=== PATIENT | female | born 1945 | race Caucasian/White ===

== ENCOUNTER → 2017-03-22 | Outpatient (CLI) | payer MEDICARE ==
[~2017-03-22] MED LIST: AUGMENTIN 875 M1 TAB PO; CIPRO500 MG PO; CIPROFLOXACIN500 MG PO; CLARITIN10 MG PO; LEXAPRO10 MG PO; NORCO 325 MG-51 TAB PO; TAGAMET HB200 M1 PO; TYLENOL WITH CO1 TA1 PO; XANAX0.5 MG PO; XANAX1 MG PO; ZANTAC150 MG PO; ZOFRAN4 MG PO
== END | disposition home or self-care (01) ==
LOC: MAMMO 13:30
DX: N63 Unspecified lump in breast (principal)

== ENCOUNTER → 2018-02-01 | Outpatient (CLI) | payer MEDICARE | END | disposition home or self-care (01) | LOC: US 13:00 | DX: N63.12 Unspecified lump in the right breast, upper inner quadrant (principal) ==

== ENCOUNTER 2018-07-19 11:48 | Emergency (ER) | payer MEDICARE ==
[~2018-07-19] VITALS: Ht 160 cm; Wt 98.9 kg
--- NOTE | ~2018-07-19 | EKG ---
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
--- NOTE | ~2018-07-19 | EKG ---
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
[2018-07-19 12:18] LABS: BASO % 0.4 % (0.0-1.0); EOS # 0.1 10*3/uL (0.0-0.4); EOS % 1.8 % (1.0-4.0); HEMATOCRIT 37.2 % (37.0-47.0); HEMOGLOBIN 11.7 g/dl (12.0-16.0); LYMPH # 1.6 10*3/uL (1.3-4.4); LYMPH % 24.2 % (27.0-41.0); MEAN CELL VOLUME 81.8 fl (81.0-99.0); MEAN CORPUSCULAR HGB 25.7 pg (27.0-31.0); MEAN CORPUSCULAR HGB CONC 31.5 g/dl (33.0-37.0); MEAN PLATELET VOLUME 9.4 fl (9.6-12.3); MONO # 0.6 10*3/uL (0.1-1.0); MONO % 8.3 % (3.0-9.0); NEUT # 4.4 10*3/uL (2.3-7.9); PLATELET COUNT AUTOMATED 246 10*3/uL (130-400); RED BLOOD COUNT 4.55 10*6/uL (4.10-5.10); RED CELL DISTRI WIDTH 13.4 % (0-14.5); WHITE BLOOD COUNT 6.8 10*3/uL (4.8-10.8)
[2018-07-19 12:30] LABS: ACT PARTIAL THROMBO TIME 23.8 SECONDS (20.8-31.5); INTERNATIONAL NORM RATIO 1.1 (2.0-3.5)
[2018-07-19 12:34] LABS: ALBUMIN 3.4 gm/dl (3.1-4.5); ALKALINE PHOSPHATASE 80 U/L (45-117); BUN 10 mg/dl (7-24); CHLORIDE 106 mmol/L (98-107); CREATININE 0.79 mg/dL (0.55-1.02); POTASSIUM 4.5 mmol/L (3.5-5.1); SGOT/AST 17 IU/L (3-35); SGPT/ALT 17 U/L (12-78); SODIUM 140 mmol/L (136-145); TOTAL PROTEIN 6.8 gm/dL (6.4-8.2); TROPONIN I < 0.015 ng/ml (<0.045)
== END 2018-07-19 16:08 | disposition home or self-care (01) ==
LOC: ED 11:48
PROVIDERS: Emergency Medicine
DX: R09.1 Pleurisy (principal); R05 Cough; R79.1 Abnormal coagulation profile; K21.9 Gastro-esophageal reflux disease without esophagitis; Z88.2 Allergy status to sulfonamides; Z88.1 Allergy status to other antibiotic agents; Z79.899 Other long term (current) drug therapy

== ENCOUNTER → 2018-10-05 | Day surgery (SDC) | payer MEDICARE ==
[~2018-10-05] VITALS: Ht 160 cm; Wt 98.9 kg
[~2018-10-05] MED LIST changes: +NORCO 5-325 TA1 EACH PO
--- NOTE | ~2018-10-05 | PROC NOTE ---
[place], [place] PROCEDURE NOTE NAME: MILTON WRIGHT UNIT #: [id number] ROOM: DOCTOR: MINNIE GIRON MD BIRTHDATE: [birth year] DOS: 10/05/2018 PREOPERATIVE DIAGNOSIS: History of polyps. POSTOPERATIVE DIAGNOSIS: Sigmoid diverticulosis. PROCEDURE: Colonoscopy. ENDOSCOPIST: Minnie Giron MD INFORMATION SECURITY ANALYST: LEX. ANESTHESIA: MAC. INDICATIONS: The patient is a 73-year-old lady here for a followup colonoscopy. The patient has a history of polyps found on colonoscopy in the past. The procedure and its complications were explained to the patient in detail. Complications that were discussed included but were not limited to bleeding, infection, colon perforation, and missed lesions. She agreed to proceed. DESCRIPTION OF PROCEDURE: After identifying the patient, the patient was brought to the endoscopy suite and placed in the left lateral position. After IV sedation was administered, a timeout procedure was called and a digital rectal exam was performed. This was within normal limits. An adult colonoscope was now introduced into the anal canal and advanced sequentially into the rectum, sigmoid colon, descending colon, transverse colon, ascending colon up to the cecum. Upon reaching the cecum, the scope was withdrawn. There was found to be mild sigmoid diverticulosis. There were no other polyps seen. Colon looked clean with a good prep. After the scope was withdrawn, the patient was brought back to the recovery in a stable fashion. Based on this finding, the patient is recommended to have no other colonoscopies unless new symptoms appear. These findings were discussed with the patient's family in the recovery room. Minnie Giron MD CM:PROCNOTE:PROCEDURE NOTE [id number] MINNIE GIRON MD
[2018-10-05 07:34] VITALS: BP 148/77
[2018-10-05 08:02] VITALS: BP 136/71
[2018-10-05 08:15] VITALS: BP 154/77
[2018-10-05 08:32] VITALS: BP 157/78
== END | disposition home or self-care (01) ==
LOC: SDC 10-02 11:00
DX: Z12.11 Encounter for screening for malignant neoplasm of colon (principal); K57.30 Diverticulosis of large intestine without perforation or abscess without bleeding; I10 Essential (primary) hypertension; K21.9 Gastro-esophageal reflux disease without esophagitis; F41.9 Anxiety disorder, unspecified; F32.9 Major depressive disorder, single episode, unspecified; E66.9 Obesity, unspecified; Z68.38 Body mass index [BMI] 38.0-38.9, adult; Z86.010 Personal history of colon polyps; Z88.2 Allergy status to sulfonamides; Z88.1 Allergy status to other antibiotic agents; Z88.8 Allergy status to other drugs, medicaments and biological substances; Z90.49 Acquired absence of other specified parts of digestive tract; Z90.710 Acquired absence of both cervix and uterus; Z96.643 Presence of artificial hip joint, bilateral
CPT/HCPCS: 00812; G0105

== ENCOUNTER → 2019-01-19 | Outpatient (CLI) | payer MEDICARE | END | disposition home or self-care (01) | LOC: RAD 12:14 | DX: M47.27 Other spondylosis with radiculopathy, lumbosacral region (principal); M48.07 Spinal stenosis, lumbosacral region ==

== ENCOUNTER → 2019-03-04 | Outpatient (CLI) | payer MEDICARE ==
--- NOTE | ~2019-03-04 | EKG ---
[place], [place] ELECTROCARDIOGRAM REPORT NAME: MILTON WRIGHT UNIT #: [id number] ROOM: DOCTOR: EPIPHANY DRAFT REPORT BIRTHDATE: [birth year] [facility] Test Date: 2019-03-04 Test Time: 12:12:33 Pat Name: MILTON WRIGHT Department: Room: Gender: F Assistant To The Vice President: Denise Yee : 1945 Requested By: XIOMY MINAYA Order Number: [id number] Reading MD: Calos Vazquez MD Measurements Intervals [place] Rate: 53 P: -9 VT: 171 QRS: 65 QRSD: 88 T: 67 QT: 455 QTc: 428 Interpretive Statements Sinus bradycardia Borderline low voltage, extremity leads Compared to ECG 07/19/2018 15:35:36 No significant changes Electronically Signed On 03-06-2019 11:39:13 PDT by Calos Vazquez MD CM:EKGRPT:ELECTROCARDIOGRAM REPORT 1212 1139 XIOMY DU DRAFT REPORT XIOMY MINAYA
== END | disposition home or self-care (01) ==
LOC: CARD 11:54
DX: Z01.818 Encounter for other preprocedural examination (principal)

== ENCOUNTER → 2019-06-05 | Outpatient (CLI) | payer MEDICARE ==
[2019-06-05 11:11] LABS: CHOLESTEROL 253 mg/dL (<200); HDL CHOLESTEROL 72 mg/dl (40-60); LDL CHOLESTEROL 162 mg/dL (9-159); TRIGLYCERIDES 94 mg/dl (<150); VLDL CHOLESTEROL 19 mg/dL (6-40)
== END | disposition home or self-care (01) ==
LOC: LAB 09:28
PROVIDERS: Family Medicine
DX: R03.0 Elevated blood-pressure reading, without diagnosis of hypertension (principal); R79.9 Abnormal finding of blood chemistry, unspecified

== ENCOUNTER → 2021-03-23 | Outpatient (CLI) | payer MEDICARE | END | disposition home or self-care (01) | LOC: COVID19 16:59 | PROVIDERS: ATTEND Internal Medicine | DX: Z11.52 Encounter for screening for COVID-19 (principal) ==

== ENCOUNTER 2023-05-14 13:38 | Emergency (ER) | payer MEDICARE ==
[~2023-05-14] VITALS: Ht 160 cm; Wt 97.5 kg
[2023-05-14] MEDS ORDERED: IRBESARTAN75 M1 PO (14:23)
[2023-05-14] MEDS ORDERED: CENTRUM SILVER1 EAC5 PO (14:24)
[2023-05-14] MEDS ORDERED: AVPAK AZITHROM250 M1 PO (16:29)
== END 2023-05-14 16:41 | disposition home or self-care (01) ==
LOC: ED 13:38
DX: J40 Bronchitis, not specified as acute or chronic (principal); Z20.822 Contact with and (suspected) exposure to COVID-19; Z88.1 Allergy status to other antibiotic agents; Z88.2 Allergy status to sulfonamides; Z79.899 Other long term (current) drug therapy; F41.9 Anxiety disorder, unspecified; K21.9 Gastro-esophageal reflux disease without esophagitis; Z90.49 Acquired absence of other specified parts of digestive tract; Z90.711 Acquired absence of uterus with remaining cervical stump; Z96.641 Presence of right artificial hip joint

== ENCOUNTER → 2023-09-27 | Outpatient (CLI) | payer MEDICARE ==
[~2023-09-27] MED LIST changes: +AVPAK AZITHROM250 M1 PO; +CENTRUM SILVER1 EAC5 PO; +IRBESARTAN75 M1 PO
== END | disposition home or self-care (01) ==
LOC: CARD 02:25
PROVIDERS: ATTEND Internal Medicine Cardiovascular Disease
DX: I34.81 Nonrheumatic mitral (valve) annulus calcification (principal); I31.39 Other pericardial effusion (noninflammatory); I51.7 Cardiomegaly

== ENCOUNTER → 2024-01-11 | Outpatient (CLI) | payer MEDICARE ==
[2024-01-11 12:36] LABS: BUN 14 mg/dl (9-23); CHLORIDE 104 mmol/L (98-107); POTASSIUM 4.4 mmol/L (3.4-5.1)
== END | disposition home or self-care (01) ==
LOC: LAB 11:56
PROVIDERS: ATTEND Internal Medicine Cardiovascular Disease
DX: I10 Essential (primary) hypertension (principal)

== ENCOUNTER → 2024-06-05 | Outpatient (CLI) | payer MEDICARE ==
[~2024-06-05] MED LIST changes: +K-TAB20 MEQ PO; +LASIX40 MG PO; +Regadenoson 0.4 MG/5 ML SYR IV ONE
== END | disposition home or self-care (01) ==
LOC: CARD 00:04
PROVIDERS: ATTEND Internal Medicine Cardiovascular Disease
DX: R94.31 Abnormal electrocardiogram [ECG] [EKG] (principal); R06.09 Other forms of dyspnea; R06.02 Shortness of breath

== ENCOUNTER → 2025-05-24 | Outpatient (CLI) | payer MEDICARE ==
[~2025-05-24] MED LIST changes: -Regadenoson 0.4 MG/5 ML SYR IV ONE
== END | disposition home or self-care (01) ==
LOC: US 02:46
PROVIDERS: ATTEND Otolaryngology
DX: E04.1 Nontoxic single thyroid nodule (principal); R59.0 Localized enlarged lymph nodes